=== PATIENT | female | born 1990 | race Caucasian/White ===

== ENCOUNTER 2019-06-23 17:17 | Inpatient (IN) ==
[2019-06-23] MEDS ORDERED: ONDANSETRON 4 MG/2 ML VIAL IV PRN (18:04)
[2019-06-23] MEDS ORDERED: BUTORPHANOL 2 MG/ML VIAL IV PRN (18:04)
[2019-06-23] MEDS ORDERED: diphenhydrAMINE 50 MG/1 ML VIAL IV ONE (18:12)
[2019-06-23] MEDS: LACTATED RINGERS 1,000 ML IV SCH (18:29)
[2019-06-23 19:01] LABS: Basophils % 0.5 % (0.0-0.8); Eosinophils # 0.1 10*3/uL (0.0-0.87); Eosinophils % 0.7 % (0.00-10.9); Hematocrit 31.1 VOL% (35.7-47.0); Hemoglobin 9.7 GM/DL (12.0-16.0); Immature Granulocytes % 3.3 %; Immature Granulocytes Absolute 0.29 #; Lymphocytes # 1.9 10*3/uL (1.4-4.0); Lymphocytes % 21.2 % (21.3-54.2); Mean Corpuscular HGB Conc 31.2 GM/DL (32-36); Mean Corpuscular Volume 93.1 FL (87-102); Mean Platelet Volume 11.2 FL (9.6-12.0); Monocytes % 6.4 % (1.7-12.7); Neutrophils % 67.9 % (38.7-73.9); Platelet Count 234 T/CUMM (130-400); Red Blood Count 3.34 MC/CUMM (3.8-5.5); Red Cell Distribution Width 12.9 % (9.3-17.3); White Blood Count 8.8 T/CUMM (4-12)
[2019-06-23 19:24] LABS: Albumin 2.2 G/DL (3.4-5.0); Bilirubin,Direct 0.16 MG/DL (0.0-0.20); Bilirubin,Indirect 0.2 MG/DL (0.0-1.0); Bilirubin,Total 0.4 MG/DL (0.2-1.0); Calcium 9.2 MG/DL (8.5-10.1); Osmolality,Calculated 275.4 MOS/KG (273-304)
[2019-06-23] MEDS: BETAMETH SODIUM PHOS/ACETATE 30 MG/5 ML VIAL IM SCH (19:30)
[2019-06-23] MEDS ORDERED: ACETAMINOPHEN 500 MG TABLET PO ONE (22:46)
[2019-06-24] MEDS: diphenhydrAMINE 50 MG/1 ML VIAL IV PRN ×2 (00:58→20:44)
[2019-06-24] MEDS: LACTATED RINGERS 1,000 ML IV SCH ×2 (06:09→07:39)
[2019-06-24] MEDS: BUTORPHANOL 1 MG/ML VIAL IV PRN (06:11)
[2019-06-24] MEDS: FAMOTIDINE 20 MG TABLET PO SCH ×2 (09:00→21:02)
[2019-06-24] MEDS ORDERED: RANITIDINE 150 MG TABLET PO SCH (09:00)
[2019-06-24 11:07] LABS: Basophils % 0.3 % (0.0-0.8); Hematocrit 31.7 VOL% (35.7-47.0); Hemoglobin 9.7 GM/DL (12.0-16.0); Immature Granulocytes % 3.9 %; Lymphocytes # 1.4 10*3/uL (1.4-4.0); Lymphocytes % 13.4 % (21.3-54.2); Mean Corpuscular HGB Conc 30.6 GM/DL (32-36); Mean Corpuscular Volume 92.7 FL (87-102); Monocytes % 4.6 % (1.7-12.7); Neutrophils % 77.8 % (38.7-73.9); Platelet Count 211 T/CUMM (130-400); Red Blood Count 3.42 MC/CUMM (3.8-5.5); Red Cell Distribution Width 12.9 % (9.3-17.3); White Blood Count 10.3 T/CUMM (4-12)
[2019-06-24 11:27] LABS: Albumin 2.3 G/DL (3.4-5.0); Bilirubin,Direct 0.18 MG/DL (0.0-0.20); Bilirubin,Indirect 0.3 MG/DL (0.0-1.0); Bilirubin,Total 0.5 MG/DL (0.2-1.0); Calcium 9.3 MG/DL (8.5-10.1); Osmolality,Calculated 272.7 MOS/KG (273-304); Total Protein 7.2 G/DL (6.4-8.3)
[2019-06-24] MEDS: BETAMETH SODIUM PHOS/ACETATE 30 MG/5 ML VIAL IM SCH (21:17)
[2019-06-25] MEDS: diphenhydrAMINE 50 MG/1 ML VIAL IV PRN (02:04)
[2019-06-25 06:18] LABS: Basophils % 0.2 % (0.0-0.8); Hematocrit 29.6 VOL% (35.7-47.0); Hemoglobin 9.3 GM/DL (12.0-16.0); Immature Granulocytes Absolute 0.42 #; Lymphocytes # 1.1 10*3/uL (1.4-4.0); Lymphocytes % 12.8 % (21.3-54.2); Mean Corpuscular HGB Conc 31.4 GM/DL (32-36); Mean Corpuscular Volume 93.4 FL (87-102); Mean Platelet Volume 11.4 FL (9.6-12.0); Monocytes % 4.2 % (1.7-12.7); Neutrophils % 77.8 % (38.7-73.9); Platelet Count 211 T/CUMM (130-400); Red Blood Count 3.17 MC/CUMM (3.8-5.5); Red Cell Distribution Width 13.1 % (9.3-17.3); White Blood Count 8.3 T/CUMM (4-12)
[2019-06-25 06:42] LABS: Albumin 2.2 G/DL (3.4-5.0); Bilirubin,Direct 0.17 MG/DL (0.0-0.20); Bilirubin,Indirect 0.5 MG/DL (0.0-1.0); Bilirubin,Total 0.7 MG/DL (0.2-1.0); Calcium 8.8 MG/DL (8.5-10.1); Osmolality,Calculated 276.4 MOS/KG (273-304); Total Protein 6.8 G/DL (6.4-8.3)
[2019-06-25] MEDS: LACTATED RINGERS 1,000 ML IV SCH (08:00)
[2019-06-25] MEDS: BUTORPHANOL 1 MG/ML VIAL IV PRN ×2 (09:28→23:56)
[2019-06-25] MEDS: FAMOTIDINE 20 MG TABLET PO SCH ×2 (09:29→20:50)
[2019-06-26] MEDS: BUTORPHANOL 1 MG/ML VIAL IV PRN ×2 (05:38→22:00)
[2019-06-26] MEDS ORDERED: OXYTOCIN/LR 20 UNIT/1,000 ML BAG IV PRN (05:51)
[2019-06-26] MEDS ORDERED: diphenhydrAMINE 50 MG/1 ML VIAL IV PRN ×2 (06:03)
[2019-06-26] MEDS ORDERED: ePHEDrine 50 MG/ML AMP IV PRN (06:03)
[2019-06-26] MEDS ORDERED: hydrOXYzine HCL 25 MG/1 ML VIAL IM PRN (06:03)
[2019-06-26] MEDS ORDERED: NALOXONE 0.4 MG/ML VIAL IV PRN (06:03)
[2019-06-26] MEDS ORDERED: PROMETHAZINE 25 MG/1 ML VIAL IM PRN (06:03)
[2019-06-26] MEDS ORDERED: CITRIC ACID/SODIUM CITRATE 30 ML UDCUP PO PRN (06:05)
[2019-06-26] MEDS ORDERED: FAMOTIDINE 20 MG/2 ML VIAL IV PRN (06:05)
[2019-06-26] MEDS: LACTATED RINGERS 1,000 ML IV SCH (06:18)
[2019-06-26] MEDS ORDERED: AMPICILLIN INJ 2,000 MG in SODIUM CHLORIDE 0.9% 100 ML IV SCH (07:00)
[2019-06-26] MEDS: fentaNYL 2 MCG/ROPIV 0.2% EPID 100 ML EPIDURAL SCH ×2 (07:30→13:52)
[2019-06-26 08:26] LABS: Amorphous Crystals,Urine Occasional /HPF (Few); Apearance,Urine CLEAR (Clear); Bilirubin,Urine Negative (Negative); Blood, Urine Negative (Negative); Glucose,Urine (UA) Negative (Negative); Ketones,Urine 5 mg/dL (Negative); Nitrite,Urine Negative (Negative); Protein,Urine Negative; Urine Color Yellow (Yellow); Urine Specific Gravity 1.009 (1.001-1.035); WBC,Urine <1 /HPF (0-6)
[2019-06-26 15:06] LABS: Total Chenodeoxycholic acid 4.21 nmol/mL (<=6.00); Total Cholic acid 12.51 nmol/mL (<=5.00); Total Deoxycholic acid 1.22 nmol/mL (<=6.00); Total Ursodeoxycholic acid 0.75 nmol/mL (<=2.00)
[2019-06-26] MEDS ORDERED: miSOPROStol 200 MCG TABLET ONE (16:42)
[2019-06-26] MEDS ORDERED: LIDOCAINE 1% 50 ML VIAL ONE (16:42)
[2019-06-26] MEDS ORDERED: CARBOPROST TROMETHAMINE 250 MCG/ML AMP IM ONE ×2 (16:43→18:43)
[2019-06-26] MEDS ORDERED: METHYLERGONOVINE 0.2 MG/1 ML AMP ONE (16:43)
[2019-06-26] MEDS ORDERED: SODIUM CHLORIDE 0.9% 1,000 ML IV PRN (18:21)
[2019-06-26 18:26] LABS: Hematocrit 35.5 VOL% (35.7-47.0); Hemoglobin 10.7 GM/DL (12.0-16.0)
[2019-06-26] MEDS ORDERED: METHYLERGONOVINE 0.2 MG/1 ML AMP IM ONE (18:43)
[2019-06-26] MEDS ORDERED: miSOPROStol 200 MCG TABLET VAG ONE (18:43)
[2019-06-26] MEDS: IBUPROFEN 800 MG TABLET PO PRN (19:40)
[2019-06-26] MEDS ORDERED: HydrOXYzine PAMOATE 25 MG CAPSULE PO ONE (23:52)
[2019-06-27] MEDS: FAMOTIDINE 20 MG TABLET PO SCH ×3 (00:11→20:55)
[2019-06-27] MEDS: diphenhydrAMINE 50 MG/1 ML VIAL IV PRN (00:51)
[2019-06-27 00:58] LABS: Basophils % 0.3 % (0.0-0.8); Eosinophils % 0.1 % (0.00-10.9); Hematocrit 32.9 VOL% (35.7-47.0); Hemoglobin 10.7 GM/DL (12.0-16.0); Immature Granulocytes % 1.7 %; Immature Granulocytes Absolute 0.25 #; Lymphocytes # 1.2 10*3/uL (1.4-4.0); Lymphocytes % 8.1 % (21.3-54.2); Mean Corpuscular HGB Conc 32.5 GM/DL (32-36); Mean Corpuscular Volume 88.2 FL (87-102); Mean Platelet Volume 11.4 FL (9.6-12.0); Neutrophils % 80.8 % (38.7-73.9); Platelet Count 223 T/CUMM (130-400); Red Blood Count 3.73 MC/CUMM (3.8-5.5); Red Cell Distribution Width 14.2 % (9.3-17.3); White Blood Count 14.4 T/CUMM (4-12)
[2019-06-27] MEDS: LACTATED RINGERS 1,000 ML IV SCH (03:03)
[2019-06-27 04:28] LABS: Apearance,Urine CLEAR (Clear); Bacteria,Urine Occasional /HPF (Few); Bilirubin,Urine Negative (Negative); Blood, Urine Large mg/dL (Negative); Glucose,Urine (UA) Negative (Negative); Ketones,Urine 5 mg/dL (Negative); Mucus,Urine Occasional /LPF (Occasional); Nitrite,Urine Negative (Negative); Protein,Urine 100 MG/DL; RBC,Urine 22 /HPF (0-4); Squamous Epithelial Cell,Urine Occasional /HPF (0-10); Urine Color Yellow (Yellow); WBC,Urine 7 /HPF (0-6)
[2019-06-27 08:54] LABS: Basophils % 0.3 % (0.0-0.8); Eosinophils % 0.2 % (0.00-10.9); Hematocrit 33.1 VOL% (35.7-47.0); Hemoglobin 10.8 GM/DL (12.0-16.0); Immature Granulocytes % 2.1 %; Immature Granulocytes Absolute 0.29 #; Lymphocytes # 1.6 10*3/uL (1.4-4.0); Lymphocytes % 11.9 % (21.3-54.2); Mean Corpuscular HGB Conc 32.6 GM/DL (32-36); Mean Platelet Volume 11.3 FL (9.6-12.0); Monocytes % 8.6 % (1.7-12.7); Neutrophils % 76.9 % (38.7-73.9); Platelet Count 244 T/CUMM (130-400); Red Blood Count 3.76 MC/CUMM (3.8-5.5); Red Cell Distribution Width 14.3 % (9.3-17.3); White Blood Count 13.5 T/CUMM (4-12)
[2019-06-27] MEDS: HydrOXYzine PAMOATE 25 MG CAPSULE PO PRN ×2 (11:10→18:52)
[2019-06-27] MEDS: IBUPROFEN 800 MG TABLET PO PRN ×2 (11:37→20:55)
[2019-06-27] MEDS: DOCUSATE SODIUM 100 MG CAPSULE PO SCH ×2 (14:32→21:10)
[2019-06-27] MEDS ORDERED: diphenhydrAMINE CAP 25 MG CAPSULE ONE (16:36)
[2019-06-27] MEDS ORDERED: diphenhydrAMINE CAP 25 MG CAPSULE PO PRN (16:38)
[2019-06-27] MEDS ORDERED: BENZOCAINE 20%/MENTHOL 0.5% SPRAY 56 GM CAN TOP PRN (21:08)
[2019-06-28] MEDS: IBUPROFEN 800 MG TABLET PO PRN ×2 (04:41→16:43)
[2019-06-28] MEDS: MAGNESIUM HYDROXIDE SUSP 30 ML UDCUP PO PRN ×2 (04:46→16:50)
[2019-06-28] MEDS: FAMOTIDINE 20 MG TABLET PO SCH (09:12)
[2019-06-28] MEDS: DOCUSATE SODIUM 100 MG CAPSULE PO SCH ×2 (09:12→20:05)
[2019-06-28 13:32] LABS: Basophils # 0.1 10*3/uL (0.0-0.2); Basophils % 0.8 % (0.0-0.8); Eosinophils # 0.1 10*3/uL (0.0-0.87); Eosinophils % 1.1 % (0.00-10.9); Hemoglobin 9.7 GM/DL (12.0-16.0); Immature Granulocytes Absolute 0.52 #; Lymphocytes % 19.7 % (21.3-54.2); Mean Corpuscular HGB Conc 31.3 GM/DL (32-36); Mean Corpuscular Volume 89.6 FL (87-102); Mean Platelet Volume 10.8 FL (9.6-12.0); Monocytes % 6.9 % (1.7-12.7); Neutrophils % 66.5 % (38.7-73.9); Platelet Count 257 T/CUMM (130-400); Red Blood Count 3.46 MC/CUMM (3.8-5.5); Red Cell Distribution Width 14.3 % (9.3-17.3); White Blood Count 10.4 T/CUMM (4-12)
[2019-06-28 13:54] LABS: Anisocytosis Slight; Eosinophils 2 % (0-10); Hypochromasia Slight; Lymphocytes 23 % (20-55); Segmented Neutrophils 69 % (50-85); Total Cells Counted 100
[2019-06-28 13:55] LABS: Platelet Estimate Adequate; Polychromasia Few
[2019-06-28 14:03] LABS: Alanine Aminotransferase 197 U/L (13-56); Albumin 1.9 G/DL (3.4-5.0); Alkaline Phosphatase 140 U/L (45-117); Aspartate Amino Transferase 66 U/L (0-37); Bilirubin,Total < 0.39 MG/DL (0.2-1.0); Blood Urea Nitrogen 13 MG/DL (7-18); Calcium 8.8 MG/DL (8.5-10.1); Glucose 110 MG/DL (74-106); Osmolality,Calculated 283.1 MOS/KG (273-304); Total Protein 6.1 G/DL (6.4-8.3)
[2019-06-29] MEDS: IBUPROFEN 800 MG TABLET PO PRN ×2 (00:40→07:40)
[2019-06-29] MEDS: FAMOTIDINE 20 MG TABLET PO SCH ×2 (02:28→09:59)
[2019-06-29] MEDS: DOCUSATE SODIUM 100 MG CAPSULE PO SCH (09:59)
[2019-06-29] MEDS ORDERED: ACETAMINOPHEN 325 MG TABLET PO PRN (11:47)
[2019-06-29 12:17] VITALS: BP 142/76
[2019-06-29 12:17] LABS: Hepatitis B Core IgM Quant 0.35 Index; Hepatitis B Surface Ag Quant < 0.10 Index; Hepatitis B Surface Ag Result Negative (Negative); Hepatitis C Virus Ab Quant 0.06 Index; Hepatitis C Virus Ab Result Negative (Negative)
== END 2019-06-29 17:56 | disposition home or self-care (01) | DRG 560 ==
LOC: N.LAB 17:17 → N.LD 17:18 → N.OB 06-27 10:48
PROVIDERS: ADMIT Obstetrics & Gynecology; ATTEND Obstetrics & Gynecology